=== PATIENT | female | born 1975 | race American Indian/Alaskan Native ===

== ENCOUNTER 2016-05-06 15:02 | Outpatient (CLI) | payer MEDICAID ==
--- NOTE | 2016-05-07 08:38 | Mammography Report ---
BILATERAL MAMMOGRAM with CAD: HISTORY: Cancer screening. Comparison study is dated July 01, 2013. FINDINGS: The breast tissue is heterogeneously dense, which could obscure detection of small masses (approximately 50%-75% glandular). No mass, distortion, suspicious calcification, or skin change is seen. IMPRESSION: Negative mammogram. There is no mammographic evidence of malignancy. RECOMMENDATION: Follow-up per ACS guidelines. BI-RADS CATEGORY: 1 = Negative ACR BI-RADS MAMMOGRAPHIC CODES: 0 = Needs additional imaging evaluation; 1 = Negative; 2 = Benign; 3 = Probably benign; 4 = Suspicious; 5 = Malignant; 6 = Known biopsy-proven malignancy COMMENT: 1. Dense breast tissue, i.e., adenosis, fibrocystic changes, etc., may obscure an underlying neoplasm. 2. Approximately 10% of cancers are not detected with mammography. 3. A negative mammography report should not delay biopsy if a clinically suspicious mass is present. COMMENT: Patient follow-up letters are generated in [employer].
== END 2016-05-06 15:03 | disposition home or self-care (01) ==
LOC: MAMMO 15:02
PROVIDERS: ATTEND Obstetrics & Gynecology
DX: Z12.31 Encounter for screening mammogram for malignant neoplasm of breast (principal)
CPT/HCPCS: 77067; G0202

== ENCOUNTER 2017-10-23 11:57 | Outpatient (CLI) | payer MEDICAID ==
--- NOTE | 2017-10-23 14:43 | Mammography Report ---
BILATERAL DIGITAL SCREENING MAMMOGRAM with CAD: 10/23/17 11:57:00 CLINICAL: Routine screening. COMPARISON:05/06/16 FINDINGS: The breasts are heterogeneously dense, which may obscure small masses. No mass, architectural distortion or suspicious calcifications. IMPRESSION: No mammographic evidence of malignancy. BI-RADS CATEGORY: 1 - - Negative RECOMMENDATION: Routine mammographic screening in one year. COMMENT: Patient follow-up letters are generated by our [employer] application.
== END 2017-10-23 11:58 | disposition home or self-care (01) ==
LOC: MAMMO 11:57
PROVIDERS: ATTEND Family Medicine
DX: Z12.31 Encounter for screening mammogram for malignant neoplasm of breast (principal); K21.9 Gastro-esophageal reflux disease without esophagitis; F41.9 Anxiety disorder, unspecified; D64.9 Anemia, unspecified
CPT/HCPCS: 77067

== ENCOUNTER 2018-01-02 07:30 | Day surgery (SDC) | payer MEDICAID ==
[2018-01-02] MEDS ORDERED: ECOTRIN PO NR (09:00)
[2018-01-02 09:01] LABS: Basophils # (Auto) 0.1 K/mm3 (0.0-0.1); Basophils % (Auto) 0.9 % (0.0-1.8); Eosinophils # (Auto) 0.1 K/mm3 (0.0-0.4); Eosinophils % (Auto) 0.9 % (0.0-4.3); Hematocrit 26.2 % (30.3-42.9); Hemoglobin 8.3 gm/dl (10.1-14.3); Lymphocytes # (Auto) 2.6 K/mm3 (1.2-5.4); Lymphocytes % (Auto) 31.7 % (13.4-35.0); Mean Corpuscular HGB Conc 32 % (30-34); Monocytes # (Auto) 0.6 K/mm3 (0.0-0.8); Monocytes % (Auto) 7.4 % (0.0-7.3); Platelet Count 419 K/mm3 (140-440); Red Blood Count 3.99 M/mm3 (3.65-5.03)
[2018-01-02 09:02] LABS: Mean Corpuscular Hemoglobin 21 pg (28-32); Mean Corpuscular Volume 66 fl (79-97)
[2018-01-02 09:11] LABS: BUN/Creatinine Ratio 16; Blood Urea Nitrogen 8 mg/dL (7-17); Calcium 8.9 mg/dL (8.4-10.2); Hemolysis Index 0
[2018-01-02 09:17] LABS: INR 0.99 (0.87-1.13)
[2018-01-02 09:50] LABS: Partial Thromboplastin Time 27.8 Sec. (24.2-36.6)
[2018-01-02] MEDS: NACL 0.9% 500 ML 500 ML IV SCH ×2 (09:51→10:50)
[2018-01-02] MEDS ORDERED: VERSED ONE (10:18)
[2018-01-02] MEDS ORDERED: HEPARIN/NS 5000 UNIT/500ML(CATH LAB) 1,000 ML IR ONE (10:18)
[2018-01-02] MEDS ORDERED: HEPARIN 10,000 UNITS/10 ML ONE (10:18)
[2018-01-02] MEDS ORDERED: NITROGLYCERIN SYRINGE 3 ML ONE (10:19)
[2018-01-02] MEDS ORDERED: XYLOCAINE 2% INFILTRATI ONE (10:19)
[2018-01-02] MEDS ORDERED: CALAN ONE (10:19)
[2018-01-02] MEDS ORDERED: SUBLIMAZE ONE (10:19)
--- NOTE | 2018-01-02 11:14 | Short Stay Summary ---
Short Stay Documentation Date of service: 01/02/18 - History H&P: obtained from office - Allergies and Medications Current Medications: Allergies hydromorphone HCl [From Dilaudid] Allergy (Verified 12/03/13 11:45) Hives Sulfa (Sulfonamide Antibiotics) Allergy (Verified 12/03/13 11:45) Hives Home Medications Medication Instructions Recorded Confirmed Last Taken Type Gabapentin 1 cap PO PRN 12/03/13 01/02/18 01/01/18 History 300 mg Omeprazole [PriLOSEC] 1 cap PO DAILY 12/03/13 01/02/18 01/01/18 History 1 tablet Active Medications Sodium Chloride (Nacl 0.9% 500 Ml) 500 mls @ 50 mls/hr IV DIRECT NIA Stop: 01/02/18 18:59 Last Admin: 01/02/18 10:50 Dose: 50 mls/hr - Physical exam General appearance: no acute distress Integumentary: no rash HEENT: Atraumatic Lungs: Clear to auscultation Breasts: deferred Heart: Regular rate Gastrointestinal: normal Female Genitourinary: deferred Rectal Exam: deferred Extremities: no ischemia Neurological: Normal gait - Brief post op/procedure progress note Date of procedure: 01/02/18 Pre-op diagnosis: Shortness of breath, abnormal MPI Post-op diagnosis: same Procedure: LHC and LV gram Anesthesia: MAC Findings: See report Surgeon: MICHELLE YOUNGER Estimated blood loss: none Pathology: none Condition: stable - Hospital course Hospital course: Uneventful - Disposition Condition at discharge: Good Disposition: DC-01 TO HOME OR SELFCARE Short Stay Discharge Plan Activity: advance as tolerated Weight Bearing Status: Weight Bear as Tolerated Diet: regular Follow up with: TONY WU JR, MD [Primary Care Provider] - 7 Days
--- NOTE | 2018-01-02 14:12 | Cardiac Catherization Report ---
LEFT HEART CATHETERIZATION INDICATION FOR PROCEDURE: Shortness of breath, abnormal myocardial perfusion scan. ORDERING PHYSICIAN: Dr. Judi Jefferson. PROCEDURES PERFORMED: 1. Selective left and right coronary angiography. 2. Left ventriculography. DESCRIPTION OF PROCEDURE: After obtaining written consent, the patient was draped using sterile technique. A 2% lidocaine was injected into the right wrist. A 6-Burmese radial sheath was inserted into the right radial artery. A 6-Burmese JL3.5 catheter was used to selectively engage left coronary artery. A 6-Burmese JL4 catheter was used to selectively engage the right coronary artery. A 6-Burmese JL4 catheter was used to hand inject the left ventriculogram. No complications occurred during the procedure. Hemostasis was achieved at the end of the procedure using manual pressure. SPECIMEN REMOVED: None. ESTIMATED BLOOD LOSS: Minimal. SEDATION ADMINISTERED: 1 mg of IV Versed and 25 mcg of IV fentanyl. PHYSICIAN-PATIENT [id number] SEDATION START TIME: 10:53 a.m. PHYSICIAN-PATIENT [id number] SEDATION STOP TIME: 11:05 A.M. TOTAL SEDATION TIME: 12 minutes. FINDINGS: HEMODYNAMICS: Aortic pressure is 134/84. LV systolic pressure 134 mmHg, LVEDP 21 mmHg. No gradient across the left ventricular outflow tract. CARDIAC STRUCTURES: Normal left ventricular size and systolic function with an ejection fraction estimated at 60%, normal wall motion. CORONARY ANATOMY: 1. This is a right dominant circulation. 2. The left main angiographically normal. 3. LAD angiographically normal. 4. Left circumflex artery angiographically normal. 5. Right coronary artery angiographically normal, large dominant vessel. IMPRESSION: 1. Angiographically normal coronary circulation. 2. Normal left ventricular ejection fraction. 3. Left ventricular end-diastolic pressure 21 mmHg. RECOMMENDATION: Follow up with referring muffler installer. The patient's shortness of breath is more likely secondary to her microcytic anemia with a hemoglobin of 8.6 and MCV of 66. Clinical correlation is warranted. JOB# [id number] KHANH/DANI
[2018-01-02 15:36] VITALS: BP 137/59
== END 2018-01-02 14:50 | disposition home or self-care (01) ==
LOC: CATHLABREC 07:30
PROVIDERS: ATTEND Internal Medicine Cardiovascular Disease
DX: R06.02 Shortness of breath (principal); K21.9 Gastro-esophageal reflux disease without esophagitis; M06.9 Rheumatoid arthritis, unspecified; F41.9 Anxiety disorder, unspecified; Z88.2 Allergy status to sulfonamides; Z88.8 Allergy status to other drugs, medicaments and biological substances; Z98.890 Other specified postprocedural states; Z86.2 Personal history of diseases of the blood and blood-forming organs and certain disorders involving the immune mechanism; Z82.49 Family history of ischemic heart disease and other diseases of the circulatory system
CPT/HCPCS: 36415; 80048; 85025; 85610; 85730; 93005; 93010; 93458; 99156; C1894; J1644; J2250; J3010; J7040; Q9967

== ENCOUNTER 2018-11-03 09:33 | Outpatient (CLI) | payer MEDICAID ==
--- NOTE | 2018-11-03 12:04 | Mammography Report ---
BILATERAL DIGITAL SCREENING MAMMOGRAM WITH CAD INDICATION: Routine screening mammography. TECHNIQUE: Digital bilateral 2D mammography was obtained in the craniocaudal and mediolateral obliq ue projections. This examination was interpreted with the benefit of Computer-Aided Detection analysi s. COMPARISON: 10/23/2017 FINDINGS: Breast Density: The breasts are heterogeneously dense, which may obscure small masses. There is no evidence of dominant mass, suspicious calcifications or architectural distortion in eith er breast. IMPRESSION:No mammographic evidence of malignancy. BI-RADS Category 1: Negative. No mammographic evidence of malignancy. Recommend routine screening m ammography in one year. A "normal" or negative report should not discourage follow up or biopsy of a clinically significant f inding. A written summary of these findings will be mailed to the patient. The patient will be entered into a mammography reporting system which will generate a reminder letter for the patient's next appointmen t at the appropriate interval. The [employer] recommends yearly mammograms starting at age 40 and continuing as l alla as a woman is in good health. Breast MRI is recommended for women with an approximate 20-25% or greater lifetime risk of breast cancer, including women with a strong family history of breast or ova eric cancer or who have been treated for Hodgkin's disease. Signer Name: James Dolan MD Signed: 11/03/2018 12:00 PM Workstation Name: [id number]
== END 2018-11-03 09:34 | disposition home or self-care (01) ==
LOC: MAMMO 09:33
PROVIDERS: ATTEND Family Medicine
DX: Z12.31 Encounter for screening mammogram for malignant neoplasm of breast (principal); K21.9 Gastro-esophageal reflux disease without esophagitis
CPT/HCPCS: 77067

== ENCOUNTER 2019-12-01 10:30 | Outpatient (CLI) | payer OTHER ==
--- NOTE | 2019-12-02 09:21 | Mammography Report ---
DIGITAL SCREENING MAMMOGRAM WITH CAD, 12/01/2019 INDICATION: Routine screening mammography. TECHNIQUE: Digital bilateral 2D mammography was obtained in the craniocaudal and mediolateral obliq ue projections. This examination was interpreted with the benefit of Computer-Aided Detection analysi s. COMPARISON: 11/03/2018, 10/23/2017 FINDINGS: Breast Density: The breasts are heterogeneously dense, which may obscure small masses. There is no evidence of dominant mass, suspicious calcifications or architectural distortion in eithe r breast. Postsurgical scars are present bilaterally. Overall, no interval change. IMPRESSION: No evidence of malignancy. Follow up recommendation: Routine yearly BI-RADS Category 2: Benign. A "normal" or negative report should not discourage follow up or biopsy of a clinically significant f inding. A written summary of these findings will be mailed to the patient. The patient will be entered into a mammography reporting system which will generate a reminder letter for the patient's next appointmen t at the appropriate interval. The [employer] recommends yearly mammograms starting at age 40 and continuing as l alla as a woman is in good health. Breast MRI is recommended for women with an approximate 20-25% or greater lifetime risk of breast cancer, including women with a strong family history of breast or ova eric cancer or who have been treated for Hodgkin's disease. Signer Name: Jasmin Morgan MD Signed: 12/02/2019 9:17 AM Workstation Name: [id number]
== END 2019-12-01 10:31 | disposition home or self-care (01) ==
LOC: MAMMO 10:30
PROVIDERS: ATTEND Family Medicine
DX: Z12.31 Encounter for screening mammogram for malignant neoplasm of breast (principal)
CPT/HCPCS: 77067

== ENCOUNTER 2020-04-19 08:50 | Emergency (ER) | payer SELFPAY ==
[2020-04-19 09:25] VITALS: BP 148/81
--- NOTE | 2020-04-19 14:32 | Emergency Department Report ---
ED Extremity Problem HPI - General Chief complaint: Extremity Injury, Lower Stated complaint: PAIN IN THE LEFT LEG Time Seen by Provider: 04/19/20 14:23 Source: patient Mode of arrival: Ambulatory Limitations: No Limitations - History of Present Illness Initial comments: Patient is a 44-year-old female presents emergency room complaints of left hip pain that began 4 days ago. She states that the pain runs down the lateral thigh. She denies any pain in her back. She denies any fall or injury. Patient denies any leg swelling or calf pain. She states that her pain gets worse throughout the day when she is walking around. She states that she does walk up and down the steps frequently. She denies any numbness or weakness. She has a past medical history of fibromyalgia, IBS, sciatica, spinal stenosis. She has an allergy to Dilaudid, latex, sulfa. She states that she has irregular menstrual cycles and denies any possibility of . Severity scale (0 -10): 8 - Related Data Home Medications Medication Instructions Recorded Confirmed Last Taken Gabapentin 1 cap PO PRN 12/03/13 01/02/18 01/01/18 300 mg Omeprazole [PriLOSEC] 1 cap PO DAILY 12/03/13 01/02/18 01/01/18 1 tablet Previous Rx's Medication Instructions Recorded Last Taken Type Menthol/Camphor [Elcho Swanton 1 applicatio TP BID #18 oint...g. 04/19/20 Unknown Rx Ointment] Naproxen [EC-Naprosyn] 500 mg PO BID PRN #14 tablet. 04/19/20 Unknown Rx methOCARBAMOL [Robaxin TAB] 500 mg PO BID PRN #14 tab 04/19/20 Unknown Rx Allergies Allergy/AdvReac Type Severity Reaction Status Date / Time hydromorphone HCl Allergy Hives Verified 12/03/13 11:45 [From Dilaudid] latex Allergy Rash Verified 04/19/20 09:18 Sulfa (Sulfonamide Allergy Hives Verified 12/03/13 11:45 Antibiotics) ED Review of Systems ROS: Stated complaint: PAIN IN THE LEFT LEG Other details as noted in HPI Comment: All other systems reviewed and negative ED Past Medical Hx - Past Medical History Hx GERD: Yes Hx Asthma: No Hx COPD: No Additional medical history: LUPUS/ FIBROMAYLIA/SCIATCA - Surgical History Hx Breast Surgery: Yes (CYST REMOVED AXILLA BILAT 1986) - Social History Smoking Status: Never Smoker Substance Use Type: None - Medications Home Medications: Home Medications Medication Instructions Recorded Confirmed Last Taken Type Gabapentin 1 cap PO PRN 12/03/13 01/02/18 01/01/18 History 300 mg Omeprazole [PriLOSEC] 1 cap PO DAILY 12/03/13 01/02/18 01/01/18 History 1 tablet Menthol/Camphor [Elcho Sw[place] 1 applicatio TP BID #18 oint...g. 04/19/20 Unknown Rx Ointment] Naproxen [EC-Naprosyn] 500 mg PO BID PRN #14 tablet.dr 04/19/20 Unknown Rx methOCARBAMOL [Robaxin TAB] 500 mg PO BID PRN #14 tab 04/19/20 Unknown Rx ED Physical Exam - General Limitations: No Limitations General appearance: alert, in no apparent distress - Head Head exam: Present: atraumatic, normocephalic - Eye Eye exam: Present: normal appearance - ENT ENT exam: Present: mucous membranes moist - Respiratory Respiratory exam: Absent: respiratory distress, accessory muscle use - Extremities Exam Extremities exam: Present: other (ttp overlying the insertion point of the flexor tendons of the left hip, FROM of the LLE, pain with full flexion of the hip, no edema of the LLE, no calf ttp, no skin changes, no increased warmth, neurovascularly intact) - Neurological Exam Neurological exam: Present: alert, oriented X3 - Psychiatric Psychiatric exam: Present: normal affect, normal mood - Skin Skin exam: Present: warm, dry, intact ED Course Vital Signs 04/19/20 09:24 Temperature 97.9 F Pulse Rate 84 Respiratory 20 Rate Blood Pressure 148/81 [Right] O2 Sat by Pulse 100 Oximetry ED Medical Decision Making - Medical Decision Making Patient is a 44-year-old female presents emergency room complaints of left hip pain that began 4 days ago. She states that the pain runs down the lateral thigh. She denies any pain in her back. She denies any fall or injury. Patient denies any leg swelling or calf pain. She states that her pain gets worse throughout the day when she is walking around. She states that she does walk up and down the steps frequently. She denies any numbness or weakness. She has a past medical history of fibromyalgia, IBS, sciatica, spinal stenosis. She has an allergy to Dilaudid, latex, sulfa. She states that she has irregular menstrual cycles and denies any possibility of . VSS. on exam:ttp overlying the insertion point of the flexor tendons of the left hip, FROM of the LLE, pain with full flexion of the hip, no edema of the LLE, no calf ttp, no skin changes, no increased warmth, neurovascularly intact. Examination appears most consistent with flexor tendinitis versus IT band syndrome. She has had no acute traumatic injury. No clinical signs of septic joint or DVT. Discussed the importance of orthopedic follow-up. Discussed return precautions. Patient given prescription for naproxen, Robaxin, Elcho balm ointment. Advised patient Please use medication as prescribed. May use ice pack, heating pad, rest, Epsom salt bath. Follow-up with primary care doctor. Follow-up orthopedic doctor. Return to emergency room for any new or worsening symptoms. Critical care attestation.: If time is entered above; I have spent that time in minutes in the direct care of this critically ill patient, excluding procedure time. ED Disposition Clinical Impression: Left hip pain Disposition: DC-01 TO HOME OR SELFCARE Is pt being admited?: No Does the pt Need Aspirin: No Condition: Stable Instructions: Hip Pain Additional Instructions: Please use medication as prescribed. May use ice pack, heating pad, rest, Epsom salt bath. Follow-up with primary care doctor. Follow-up orthopedic doctor. Return to emergency room for any new or worsening symptoms. Prescriptions: Naproxen [EC-Naprosyn] 500 mg PO BID PRN #14 tablet.dr PRN Reason: pain methOCARBAMOL [Robaxin TAB] 500 mg PO BID PRN #14 tab PRN Reason: pain Menthol/Camphor [Elcho Swanton Ointment] 1 applicatio TP BID #18 oint...g. Referrals: GREGOR STODDARD MD [Primary Care Provider] - 2-3 Days EVELYN PERRY MD [Staff Physician] - 2-[address] [facility] [Provider Group] - 2-3 Days Time of Disposition: 14:30 Print Language: THAI
== END 2020-04-19 14:38 | disposition home or self-care (01) ==
LOC: ED 08:50
DX: M25.552 Pain in left hip (principal); K21.9 Gastro-esophageal reflux disease without esophagitis; Z88.2 Allergy status to sulfonamides; Z91.040 Latex allergy status; Z88.8 Allergy status to other drugs, medicaments and biological substances; Z79.899 Other long term (current) drug therapy; Z98.890 Other specified postprocedural states
CPT/HCPCS: 99282